=== PATIENT | female | born 1960 | race Caucasian/White ===

== ENCOUNTER 2019-05-03 00:05 | Emergency (ER) | payer OTHER ==
[~2019-05-03] VITALS: Ht 157.5 cm; Wt 64.7 kg
--- NOTE | 2019-05-03 00:50 | NUR ---
pt here for cough, post nasal drip and sob. pt has relative that is covid pos. VSS. pt in nad. xray at bedside. all precautions in place. call light in reach
[2019-05-03] MEDS ORDERED: AZITHROMYCIN 500 MG TABLET PO ONE (01:20)
[2019-05-03] MEDS ORDERED: AZITHROMYCIN 500 MG TABLET ONE (01:29)
--- NOTE | 2019-05-03 01:35 | NUR ---
Patient given discharge instructions and they have confirmed that they understand the instructions. Patient ambulatory with steady gait.
[2019-05-03 01:36] VITALS: BP 121/71
== END 2019-05-03 01:38 | disposition home or self-care (01) ==
LOC: ED 00:49
DX: J18.9 Pneumonia, unspecified organism (principal); B34.9 Viral infection, unspecified
CPT/HCPCS: 71045; 93005; 99283